=== PATIENT | female | born 1950 | race Caucasian/White ===

== ENCOUNTER 2017-09-05 14:00 | Inpatient (IN) | payer MEDICARE ==
[~2017-09-05] VITALS: Ht 160 cm; Wt 82.6 kg
[2017-09-05 15:32] VITALS: BP 143/75
[2017-09-05 15:44] LABS: APPEARANCE,URINE Clear (CLEAR); BILIRUBIN,URINE Negative (NEGATIVE); COLOR,URINE Yellow (YELLOW); GLUCOSE, URINE (UA) Negative (NEGATIVE); KETONES,URINE Negative (NEGATIVE); LEUKOCYTE ESTERASE ,URINE Moderate (NEGATIVE); NITRATE,URINE Negative (NEGATIVE); OCCULT BLOOD,URINE Negative (NEGATIVE); PH,URINE 5.5 (5.0-8.0); PROTEIN,URINE Negative (NEGATIVE); UROBILINOGEN,URINE 0.2 mg/dL (0.2-1.0)
[2017-09-05 15:51] LABS: BACTERIA,URINE Few /HPF (None Seen); RBC,URINE None Seen /HPF (0-1); TRANSITIONAL EPI CELLS,URINE Few /LPF (None Seen)
[2017-09-06] VITALS (25 sets, daily range): BP systolic 91–128; BP diastolic 49–85
[2017-09-06] MEDS: CLINDAMYCIN 900 MG/D5% WATER 50 ML IV SCH ×2 (06:00→14:40)
[2017-09-06] MEDS ORDERED: LACTATED RINGERS 1000ML 1,000 ML IV ONE ×2 (10:27)
[2017-09-06] MEDS ORDERED: KETOROLAC TROMETHAMINE 15MG/ML ONE (11:58)
[2017-09-06] MEDS ORDERED: ACETAMINOPHEN EXTRA STRENGTH 500 MG TABLET ONE (11:58)
[2017-09-06] MEDS ORDERED: FAMOTIDINE/PF 20 MG/2 ML VIAL IV ONE (11:58)
[2017-09-06] MEDS ORDERED: OXYCODONE HCL 10 MG TAB.SR.12H PO ONE (11:59)
[2017-09-06] MEDS ORDERED: CLINDAMYCIN PHOSPHATE 150 MG/ML 6ML VIAL ONE (13:18)
[2017-09-06] MEDS ORDERED: PROPOFOL 10 MG/ML 20ML VIAL IV ONE (14:12)
[2017-09-06] MEDS ORDERED: GLYCOPYRROLATE 0.2 MG/ML 5 ML VIAL ONE ×2 (14:12→19:22)
[2017-09-06] MEDS ORDERED: LIDOCAINE PF 2% 5ML ABBOJECT ONE (14:12)
[2017-09-06] MEDS ORDERED: DEXAMETHASONE SOD PHOSPHATE 10MG/ML 1ML VIAL ONE (14:12)
[2017-09-06] MEDS ORDERED: FENTANYL CITRATE PF 50 MCG/1 ML 5ML AMP IV ONE (14:13)
[2017-09-06] MEDS ORDERED: MIDAZOLAM HCL 1 MG/ML 2ML VIAL ONE (14:13)
[2017-09-06] MEDS ORDERED: ROPIVACAINE 0.5% 5MG/ML 30ML IJ ONE (14:14)
[2017-09-06] MEDS: TRANEXAMIC ACID 1000MG/10ML IV ONE ×2 (14:45→17:50)
[2017-09-06] MEDS ORDERED: CALCIUM CARBONATE 500 MG TABLET PO PRN (17:45)
[2017-09-06] MEDS ORDERED: DiphenhydrAMINE HCL 50 MG/ML VIAL IVP PRN (17:45)
[2017-09-06] MEDS ORDERED: KETOROLAC TROMETHAMINE 15MG/ML IV PRN (17:45)
[2017-09-06] MEDS ORDERED: POTASSIUM CHLORIDE 10% ELIXIR 20 MEQ/15 ML UDCUP PO PRN (17:45)
[2017-09-06] MEDS ORDERED: LIDOCAINE HCL-MPF 1% 2ML VIAL IVP PRN (17:45)
[2017-09-06] MEDS ORDERED: TRAMADOL HCL 50 MG TABLET PO PRN (17:45)
[2017-09-06] MEDS ORDERED: OXYCODONE HCL 5 MG TAB PO PRN ×2 (17:45)
[2017-09-06] MEDS ORDERED: PROMETHAZINE HCL 25 MG/ML 1ML AMPULE IM PRN (17:45)
[2017-09-06] MEDS ORDERED: DIPHENHYDRAMINE HCL 25 MG CAPSULE PO PRN (17:45)
[2017-09-06] MEDS ORDERED: TEMAZEPAM 15 MG CAPSULE PO PRN (17:45)
[2017-09-06] MEDS ORDERED: POTASSIUM CHLORIDE 20MEQ/100ML 100 ML IV PRN (17:45)
[2017-09-06] MEDS ORDERED: POTASSIUM CHLORIDE 20 MEQ ERTAB PO PRN (17:45)
[2017-09-06] MEDS ORDERED: FERROUS FUMARATE 324 MG TABLET PO PRN (17:45)
[2017-09-06] MEDS: ACETAMINOPHEN 325 MG TAB PO SCH ×2 (17:45→22:10)
[2017-09-06] MEDS ORDERED: MEPERIDINE-PF 25 MG/ML SYG ONE (17:50)
[2017-09-06] MEDS ORDERED: ONDANSETRON HCL MDV 20ML 2 MG/ML VIAL ONE (18:43)
[2017-09-06] MEDS ORDERED: MILRINONE-D5W 20 MG/100 ML 100 ML IV ONE (19:00)
[2017-09-06] MEDS: FAMOTIDINE 20MG TAB 20 MG TAB PO SCH (22:03)
[2017-09-06] MEDS: ASPIRIN 325 MG TABLET PO SCH (22:03)
[2017-09-06] MEDS: PREGABALIN 25 MG CAP PO SCH (22:03)
[2017-09-06] MEDS: CLINDAMYCIN 900 MG/D5% WATER 50 ML IVPB SCH (22:03)
[2017-09-06] MEDS: SODIUM CHLORIDE 0.9% 1000ML 1,000 ML IV SCH (22:09)
[2017-09-07 00:25] VITALS: BP 98/55
[2017-09-07] MEDS: SODIUM CHLORIDE 0.9% 1000ML 1,000 ML IV SCH ×2 (02:12→09:32)
[2017-09-07 04:00] VITALS: BP 96/52
[2017-09-07] MEDS: ACETAMINOPHEN 325 MG TAB PO SCH ×4 (04:43→23:44)
[2017-09-07 05:24] LABS: HEMATOCRIT 30.5 % (36-48); MEAN CORPUSCULAR HEMOGLOBIN 29.7 pg (27.0-33.0); MEAN CORPUSCULAR HGB CONC 33.9 g/dL (32.0-36.0); MEAN CORPUSCULAR VOLUME 87.6 fL (79-99); PLATELET COUNT (AUTO) 259 K/uL (130-400); RED BLOOD CELL COUNT(AUTO) 3.48 MIL/uL (4.00-5.50); RED CELL DISTRIBUTION WIDTH 13.8 % (11.0-15.5); WHITE BLOOD COUNT (AUTO) 13.3 K/uL (4.8-10.8)
[2017-09-07 05:38] LABS: CREATININE 0.9 mg/dL (0.5-1.5); POTASSIUM 4.1 mmol/L (3.5-5.1)
[2017-09-07] MEDS: CLINDAMYCIN 900 MG/D5% WATER 50 ML IVPB SCH (05:56)
[2017-09-07 08:06] VITALS: BP 92/55
[2017-09-07] MEDS: POLYETHYLENE GLYCOL 3350 17 GM POWD.PACK PO SCH (09:29)
[2017-09-07] MEDS: ASPIRIN 325 MG TABLET PO SCH ×2 (09:29→20:28)
[2017-09-07] MEDS: PREGABALIN 25 MG CAP PO SCH ×2 (09:29→20:28)
[2017-09-07] MEDS: FAMOTIDINE 20MG TAB 20 MG TAB PO SCH ×2 (09:30→20:29)
[2017-09-07 12:05] VITALS: BP 99/62
[2017-09-07] MEDS: PSYLLIUM SEED 1 EACH PACKET PO SCH (12:55)
[2017-09-07 16:41] VITALS: BP 103/58
[2017-09-07 20:00] VITALS: BP 108/59
[2017-09-08] VITALS: BP 105/60
[2017-09-08 04:00] VITALS: BP 102/62
[2017-09-08] MEDS: ACETAMINOPHEN 325 MG TAB PO SCH ×2 (05:53→12:27)
[2017-09-08 08:11] VITALS: BP 102/59
[2017-09-08] MEDS: PREGABALIN 25 MG CAP PO SCH (08:33)
[2017-09-08] MEDS: ASPIRIN 325 MG TABLET PO SCH (08:33)
[2017-09-08] MEDS: FAMOTIDINE 20MG TAB 20 MG TAB PO SCH (08:33)
[2017-09-08] MEDS: POLYETHYLENE GLYCOL 3350 17 GM POWD.PACK PO SCH (08:34)
[2017-09-08 12:00] VITALS: BP 112/72
[2017-09-08] MEDS: PSYLLIUM SEED 1 EACH PACKET PO SCH (12:27)
[2017-09-08] MEDS ORDERED: ASPI-1012 PO (15:19)
[2017-09-08] MEDS ORDERED: HYDR-309 PO (15:19)
[2017-09-08] MEDS ORDERED: BISACODYL 5 MG TABLET.DR PO PRN (17:45)
[2017-09-09] MEDS ORDERED: BISACODYL 10 MG SUPP.RECT RC PRN (17:45)
== END 2017-09-08 16:50 | disposition home health service (06) | DRG 470 ==
LOC: EDSTATUS 14:00 → 4AH 09-06 18:29
PROVIDERS: ADMIT Orthopaedic Surgery; ATTEND Orthopaedic Surgery
PROC: 0SR90JZ Replacement of Right Hip Joint with Synthetic Substitute, Open Approach (ICD-10-PCS; principal; 2017-09-06 14:14)
DX: M16.11 Unilateral primary osteoarthritis, right hip (principal); E66.01 Morbid (severe) obesity due to excess calories; E78.5 Hyperlipidemia, unspecified; Z96.642 Presence of left artificial hip joint; Z68.32 Body mass index [BMI] 32.0-32.9, adult; Z90.710 Acquired absence of both cervix and uterus; Z88.2 Allergy status to sulfonamides; Z88.0 Allergy status to penicillin
CPT/HCPCS: 36415; 73503; 80048; 81001; 85027; 97039; J1100; J1885; J2001; J2175; J2250; J2260; J2704; J2795; J3010; J3490; J7030; J7120

== ENCOUNTER → 2018-10-30 | Outpatient (CLI) | payer OTHER ==
[~2018-10-30] MED LIST: ASPI-1012 PO; HYDR-4457 PO
== END | disposition home or self-care (01) ==
LOC: RAH 12:48
PROVIDERS: ATTEND Internal Medicine Nephrology
DX: Z13.6 Encounter for screening for cardiovascular disorders (principal)
CPT/HCPCS: 75571